=== PATIENT | female | born 1990 | race Caucasian/White ===

== ENCOUNTER 2022-11-29 09:54 | Emergency (ER) | payer SELFPAY ==
[~2022-11-29] VITALS: Ht 154.9 cm; Wt 77.3 kg
[2022-11-29 09:56] VITALS: TEMP 97.8
[2022-11-29] MEDS ORDERED: NORCO 325 MG-51 TAB PO (11:08)
[2022-11-29] MEDS ORDERED: AMOXICILLIN 8751 TAB PO (11:08)
[2022-11-29 12:41] VITALS: BP 112/60; PULSE 65
== END 2022-11-29 12:44 | disposition home or self-care (01) ==
LOC: COL.ER 09:54
DX: S68.121A Partial traumatic metacarpophalangeal amputation of left index finger, initial encounter (principal); S68.110A Complete traumatic metacarpophalangeal amputation of right index finger, initial encounter; R11.0 Nausea; Z23 Encounter for immunization; F17.200 Nicotine dependence, unspecified, uncomplicated; W23.0XXA Caught, crushed, jammed, or pinched between moving objects, initial encounter; Y92.59 Other trade areas as the place of occurrence of the external cause; Y99.0 Civilian activity done for income or pay